=== PATIENT | female | born 1950 | race Caucasian/White ===

== ENCOUNTER 2016-12-26 17:26 | Emergency (ER) | payer MEDICARE, OTHER ==
[~2016-12-26] VITALS: Ht 175.3 cm; Wt 70.9 kg
[2016-12-26] VITALS (7 sets, daily range): BP systolic 82–198; BP diastolic 41–69; PULSE 54–110; RESP 16–36; O2SAT 96
[~2016-12-26 17:26] MED LIST: ASPI-973 PO; CHOL200025 PO; DOCU-41 PO; FLUT16SP NS; IBUP-1827 PO; INSU100V7 SUBQ; LISI-567 PO; METF500T4 PO; OXYC5TAB72 PO; PRAV40TA PO
--- NOTE | 2016-12-26 17:26 | ED.REPORT ---
HPI-General Illness Date of Service Dec 26, 2016 ED Provider: Dr. Tremaine Pond Pt is a 66 year old female with a history of type II diabetes on Insulin and oral medication, stage IV lung cancer on Keytruda and Zomeda, DVT bilat on Jantoven who presents to the ED via EMS due to decreased LOC. Today the patient was seen for a thoracentesis (700cc taken off), and infusions of Keytruda (2 out of 6) and Zomeda. Prior to the thoracentesis pt was given Oxycodone, Benadryl, dexamethasone and a fentanyl patch. At approximately 4:40 the patient was using the restroom when she reported to her that she felt dizzy/ weak and subsequently "slumped" over. Her was able to hold her with no trauma. Pt's reports that she felt fatigued today, but did not complain of chest pain prior to this episode. He stated "her eyes went blank." Pt's neighbors were firefighters. They came over immediately and found the patient agonal and pulseless and initiated CPR at 4:45. This lasted for approximately 5 minutes until medics arrived. They noted her to be hypotensive and apneic with weak pulses. AED showed no shock advised. Pt was given Narcan with no change. Hyperglycemic 312 by medics. Due to pt's condition, she was intubated (23 at teeth) at 5:10 after 20 Etomidate and 120 succinate. O2 sats improved. Pt full code as of today 12/26/16 PCP: [facility] Oncologist: Dr. Felicia Rubio Nursing Notes Stated Complaint: INTUBATED Nursing Notes Reviewed: Yes Allergies: Coded Allergies: No Known Allergies (Unverified , 01/26/16) Scheduled Aspirin (Aspirin) 81 Mg Tablet 81 MG PO DAILY Cholecalciferol (Vitamin D3) (Vitamin D3) 2,000 Unit Tablet 2,000 UNIT PO DAILY Fluticasone Propionate (Fluticasone Propionate Nasal) 16 Gm [place].susp 1 SPRAY NS DAILY Insulin Glargine (Lantus U100 Insulin Vial) 100 Unit/Ml Vial 50 UNIT SUBQ BID Lisinopril (Lisinopril) 20 Mg Tablet 20 MG PO DAILY Metformin (Metformin) 500 Mg Tablet 1,500 MG PO QAM Pravastatin (Pravastatin) 40 Mg Tablet 40 MG PO DAILY Scheduled PRN Docusate Sodium (Colace) 100 Mg Capsule 100 MG PO BID PRN PRN For Constipation Ibuprofen (Ibuprofen) 600 Mg Tablet 600 MG PO QID PRN PRN For Pain oxyCODONE (oxyCODONE) 5 Mg Tablet 5-10 MG PO Q4H PRN PRN For Moderate Pain Miscellaneous Medications Metformin (Metformin) 500 Mg Tablet 1,000 MG PO General Time Seen by MD: 17:25 Chief Complaint Other (Found down) Hx Obtained From: Other family..., EMS Unable to Obtain Hx: Patient condition (intubated) Arrived By: Ambulance Sudden in Onset?: Yes Onset Occurred: Just prior to arrival Symptom Duration: Since onset Past Medical History Past Medical History Type II diabetes Stage IV lung cancer type ALK Hypertension Past Surgical History Port Back surgery Uncomplicated total laparoscopic hysterectomy and bilateral salpingo-oophorectomy Smoking History Never Smoker Social History Other Social History: Good social support, Ambulatory Status Independent Review of Systems Unable to Obtain ROS Intubated Full Review of Systems Neurologic: Reports: Change LOC, Dizziness, Weakness Physical Exam Vital Signs Vital Signs Date Time Temp Pulse Resp B/P Pulse Ox O2 Delivery O2 Flow Rate FiO2 12/26/16 19:00 78 16 135/68 Mechanical Ventilator 12/26/16 18:53 54 18 12/26/16 18:50 72 24 82/47 Mechanical Ventilator 12/26/16 18:43 110 21 96/50 Mechanical Ventilator 12/26/16 18:41 109 36 198/41 Mechanical Ventilator 12/26/16 18:21 92 28 130/69 Mechanical Ventilator 12/26/16 17:40 99 21 91/58 96 Mechanical Ventilator 15 Initial VS: Reviewed Alertness: Positive: Unresponsive Intubated Comatose Head / Eyes: Atraumatic, Normocephalic Respiratory / Chest: Breath sounds NL, Breath sounds = bilat Intubated Cardiovascular: Heart rate NL, Regular rhythm, Heart sounds NL Lower Ext Edema: Positive: Bilateral 2+ Abdomen: Soft, Non-tender back: Bandage over R flank Upper Extremities Upper Extremity / MS: Inspection NL, Vascular intact Lower Extremity / Pelvis / MS: Vascular intact Bilat lower extremity edema 2+ Skin: Warm, Dry Mental Status: Positive: Pharmacologically sedated Comatose Intubated Interpretation & Diagnostics Lab Results Interpretation Result Diagram: 12/26/16 1737 12/26/16 1737 Test 12/26/16 17:33 12/26/16 17:37 12/26/16 18:42 Hold Purple Top Tube Received (Received) Hold Red Top Tube Received (Received) Hold [place] Top Tube Received (Received) White Blood Count 28.2th/mm3 (3.8-10.1) Red Blood Count 4.92mil/mm3 (3.90-5.20) Hemoglobin 12.0g/dL (12.0-15.6) Hematocrit 39.2% (35.0-46.0) Mean Corpuscular Volume 79.7fL (81-100) Mean Corpuscular Hemoglobin 24.4pg (27.0-35.0) Mean Corpuscular Hemoglobin Concent 30.6% (32.0-37.0) Red Cell Distribution Width 21.5% (12.3-15.4) Platelet Count 49bil/L (150-400) Neutrophils (%) (Auto) 74% (40-74) Lymphocytes (%) (Auto) 14% (14-46) Monocytes (%) (Auto) 4% (4-12) Eosinophils (%) (Auto) 1% (0-5) Basophils (%) (Auto) 0% (0-3) Band Neutrophils % 5% (1-5) Metamyelocytes % 1% (0-0) Myelocytes % 1% (0-0) Nucleated Red Blood Cells 2/100 WBC (0-24) Sodium Level 128mEq/L (134-144) Potassium Level 5.9mEq/L (3.5-5.2) Chloride Level 92mEq/L (97-108) Carbon Dioxide Level 13mmol/L (18-29) Blood Urea Nitrogen 38mg/dL (8-27) Creatinine 0.78mg/dL (0.57-1.00) Estimat Glomerular Filtration Rate 106mL/min (>59) Glucose Level 361mg/dL (60-99) Calcium Level 7.2mg/dL (8.5-10.1) Magnesium Level 2.1mg/dL (1.6-2.6) Total Bilirubin 0.2mg/dL (0.0-1.2) Aspartate Amino Transf (AST/SGOT) 937U/L (0-50) Alanine Aminotransferase (ALT/SGPT) 639U/L (0-32) Alkaline Phosphatase 306U/L (25-165) Total Creatine Kinase 100U/L (21-215) Creatine Kinase MB 5.1ng/mL (0.0-5.3) Creatine Kinase MB % 5.1% (0.0-5.0) Troponin T 0.019ug/L (0.0-0.011) Pro-B-Type Natriuretic Peptide 469.6pg/mL (0-301) Total Protein 5.3g/dL (6.4-8.4) Albumin 2.4g/dL (3.4-5.0) Prothrombin Time 27.5sec (8.1-12.5) Prothromb Time International Ratio 2.52ratio ECG Interpretation ECG Interpretation: RBBB. ST elevation in V1, V2 felt by Dr. Nascimento to be a product of RBBB and not a product of coronary ischemia. Time: 17:56 Interpreted by: ED physician Normal ECG Interpretation: Normal rate (97) Re-Eval/Medical Decision Med Decision/Clinical Course After I noticed the slightly elevated potassium, ECG tracing at bedside in leads I, II and III with no hyperacute T waves observed. Therefore I did not believe the mild hyperkalemia was relevant. During the entire hour that we were working on the patient I was continually talking to the and family members. Ultimately after multiple rounds of epi and CPR and epinephrine drip were insufficient to keep her heart perfusing her organs and producing an adequate blood pressure I decided that things seemed medically futile to me. Therefore we discontinued our efforts with the permission of Mr. Stanton. Time of Eval: 17:34 Re-Evaluation/Progress Note: Pt family now in room. Time of Eval: 17:55 Re-Evaluation/Progress Note: Family updated of abnormal ECG. No prior ECG for comparison. No known history of MS- per family. Time of Eval: 18:06 Re-Evaluation/Progress Note: BP 65/40. Updated pt's family of plan for central lab technician. Time of Eval: 18:13 Re-Evaluation/Progress Note: Bradycardic to 30's. CPR initiated. See flow sheet. Time of Eval: 18:27 Re-Evaluation/Progress Note: Discussed cooling protocol and central line with family. Time of Eval: 18:36 Re-Evaluation/Progress Note: CPR re-started. See flow sheet. Time of Eval: 18:53 Re-Evaluation/Progress Note: Heart rate and pressure trending downward. CPR initiated. Time of Eval: 19:11 Re-Evaluation/Progress Note: Time of . Consultation #1: Consulted With: Cuff Setter (/oncologist) Call Returned at: 17:40 Note: Pt's oncologist, Dr. Felicia Rubio, was updated of the patients condition. Consultation #2: Referral / Consult Name: Meme Sky MD Consulted With: Cardiology Requested Call at: 17:58 Call Returned at: 18:01 Meter Tester: Referred to other consult (Cardiac interventionalist) Consultation #3: Referral / Consult Name: Umesh Gleason MD Consulted With: Cardiology Call Returned at: 18:05 Note: Does not believe that this is STEMI. No central lab technician. Agrees with plan for pressors. Discharge & Departure Primary Impression: Cardiorespiratory arrest Disposition: Referrals: Antoine Aldana MD (PCP) Crit Care Except Billable Proc Time Spent: 30-74 minutes Services Performed: Patient management by me, Time spent at bedside, Reviewing test results, Reviewing imaging, Discussing patient care, Documentation in record, Time with fam/surrogate Scribe Attestation Portions of this note were transcribed by Keisha Arizmendi. I, (Dr. Tremaine Pond) personally performed the history, physical exam and medical decision-making; I reviewed and confirmed the accuracy of the information in the transcribed note. Signed by: Keisha Arizmendi. Tony, 12/26/2016, 1916 copies to: Antoine Aldana MD, Kirk H MD Dec 26, 2016 17:26 Keisha Arizmendi Dec 26, 2016 17:29
[2016-12-26] MEDS ORDERED: EPINEPHrine 0.1 mg/mL 10 mL Syringe ONE ×2 (17:27→18:37)
[2016-12-26] MEDS ORDERED: 0.9% Sodium Chloride 1,000 ML IV ONE (17:43)
[2016-12-26 17:58] LABS: Mean Corpuscular Hemoglobin 24.4 pg (27.0-35.0); Mean Corpuscular Volume 79.7 fL (81-100); Platelet Count 49 bil/L (150-400)
[2016-12-26] MEDS ORDERED: Heparin 5,000 Units/500 mL NS Premix IV ONE (18:17)
[2016-12-26 18:19] LABS: Magnesium 2.1 mg/dL (1.6-2.6)
[2016-12-26] MEDS ORDERED: Phenylephrine 20 mg/250 mL D5W IV SCH ×2 (18:20)
[2016-12-26] MEDS ORDERED: Heparin 1,000 Units/500 mL NS Premix IV ONE (18:21)
[2016-12-26] MEDS ORDERED: Heparin 1,000 Unit/mL 10 mL Inj ONE (18:21)
[2016-12-26] MEDS ORDERED: Nitroglycerin 50,000 mcg/250 mL D5W Premix IV ONE (18:21)
[2016-12-26] MEDS ORDERED: Dextrose 5% 250 ML IV ONE (18:21)
[2016-12-26] MEDS ORDERED: NitroPRUSSIDE 25,000 mCg/mL 2 mL Inj IV ONE (18:21)
--- NOTE | 2016-12-26 18:21 | DRSVH ---
PROCEDURE: X-RAY CHEST ONE VIEW, PORTABLE ([id number]) INDICATIONS: cardiac arrest TECHNIQUE: One view of the chest was acquired. COMPARISON: [facility], CR, XR CHEST 2VW, 09/27/2016, 15:18. [facility], CR, XR CHEST 2VW, 09/06/2016, 12:13. FINDINGS: Surgical changes and devices: Endotracheal tube in normal position, what appears to be a percutaneou s catheter like device crosses the right chest, perhaps related to placement of chest tube/empyema dr queen or some other type of catheter in that area. Note is made of a Port-A-Cath from left-sided ap proach, with tip in the expected position of the distal SVC. Lungs and pleura: No definite pleural effusions or pneumothorax. Lungs are abnormal with alveolar i nfiltration within the right lung, consistent with pneumonia that is moderately severe. Mediastinum: Mediastinal contours appear normal. Heart size is normal. Bones and chest wall: No suspicious bony lesions. Overlying soft tissues appear unremarkable. IMPRESSION: The pattern of abnormalities noted above suggest a relatively severe degree of right-marielos ed pneumonia, with possible subpulmonic pleural effusion and what may be a percutaneous or surgically placed drainage tube from right sided approach crossing towards the right lung apex. Endotracheal t ube in normal position. Port-A-Cath from left-sided approach appears normal. The CT scanning for mo re accurate assessment is scheduled. Dictated by: Wilbur Epstein M.D. on 12/26/2016 at 18:15 Approved by: Wilbur Epstein M.D. on 12/26/2016 at 18:19
[2016-12-26 18:22] LABS: BASOPHILS % (AUTO) 0 % (0-3); EOSINOPHILS % (AUTO) 1 % (0-5); MONOCYTES % (AUTO) 4 % (4-12); NEUTROPHILS % (AUTO) 74 % (40-74)
[2016-12-26 18:23] LABS: TROPONIN T 0.019 ug/L (0.0-0.011)
[2016-12-26 19:17] LABS: INR 2.52 ratio
== END 2016-12-26 21:43 | disposition expired ==
LOC: SED 17:26 → SOUO 18:24 → SED 21:43
DX: I46.9 Cardiac arrest, cause unspecified (principal); E11.9 Type 2 diabetes mellitus without complications; C34.90 Malignant neoplasm of unspecified part of unspecified bronchus or lung; I10 Essential (primary) hypertension; Z79.84 Long term (current) use of oral hypoglycemic drugs; Z79.4 Long term (current) use of insulin; Z79.82 Long term (current) use of aspirin
CPT/HCPCS: 36415; 51702; 71010; 80053; 82550; 82553; 82948; 83735; 83880; 84484; 85025; 85610; 92950; 93005; 94799; 96360; 99291; J0171; J1644; J2250; J7030